=== PATIENT | male | born 1980 | race Caucasian/White ===

== ENCOUNTER 2023-10-05 11:35 | Emergency (ER) | payer OTHER, SELFPAY ==
[2023-10-05 11:38] VITALS: BP 134/81
--- NOTE | 2023-10-05 12:19 | ED.GENMED ---
History of Present Illness
General
Chief Complaint: DVT/Possible Blood Clot
Source: patient
Exam Limitations: none
Time Seen by Provider: 10/05/23 11:58
Nursing documentation reviewed up to this point in time: agreed with
History of Present Illness
History of Present Illness:
Patient is a 42-year-old male who presents to the ER with friend. Patient speaks [place] friend translating. 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
He denies any chest pain shortness of breath. No prior history clot.
Review of Systems
Review of Systems
Allergies reviewed?: Yes
All Other Systems: ROS reviewed and negative except as documented in HPI and ROS
Constitutional: Reports no symptoms
Respiratory: Reports no symptoms; Denies trouble breathing
Cardiac: Reports no symptoms; Denies chest pain or palpitations
Musculoskeletal: Reports other (left leg swelling/discomfort )
Skin: Reports no symptoms
Neurological: Reports no symptoms
Psychiatric: Reports no symptoms
Phy Exam
General Physical Exam
General Presentation: no apparent distress
General age: appears stated age
General Skin: warm and dry
General Habitus: normal
General Mental: alert
General Hydration: appears well hydrated
Cardiovascular Exam
Cardiovascular Exam: regular rate/rhythm, no murmur and normal peripheral pulses
Pulmonary Exam
Pulmonary Exam: lungs clear and no respiratory distress
Neurological Exam
Neurological Exam: alert and oriented x3
Musculoskeletal Exam
Musculoskeletal Exam: other (Left lower extremity is swollen on exam strong pulses full range of motion no erythema)
Skin Exam
Skin Exam: normal color and warm/dry
Psychiatric Exam
Psychiatric Exam: normal mood/affect
Course
Orders/Labs/Results
Orders:
Orders
10/05/23 11:43
US Legs, Left [US Periph Venous LOWER Ext LT] Urgent
Comment:
Reason For Exam: left calf pain
10/05/23 12:37
Complete Blood Count/With Diff Urgent
Comprehensive Metabolic Panel Urgent
10/05/23 13:43
Apixaban [Eliquis] 10 mg PO NOW STA
10/05/23 13:50
Case Management Consult ONCE
Case Management Consult: Discharge Planning
Abnormal Lab Results
10/05/23
12:37
RBC 4.46 L 10^6/uL
(4.70-6.10)
Absolute Monos (auto) 1.0 H 10^3/uL
(0.1-0.6)
Monocytes % 10.0 H %
(1.7-9.3)
10/05/23 12:37
10/05/23 12:37
Vital Signs
Initial and Last Documented VS:
Initial Vital Signs
Temp Pulse Resp BP Pulse Ox
98.3 F 104 20 134/81 99
10/05/23 11:38 10/05/23 11:38 10/05/23 11:38 10/05/23 11:38 10/05/23 11:38
Last Documented Vital Signs
Temp Pulse Resp BP Pulse Ox
98.3 F 94 18 123/86 99
10/05/23 11:38 10/05/23 13:54 10/05/23 13:54 10/05/23 13:54 10/05/23 13:54
Call Or Contact Centre Coach consulted with Physician
Call Or Contact Centre Coach consulted with physician?: Yes
Name of Physician Consulted: Daryl
MDM/Problems Addressed
Differential Diagnosis Includes:
Not limited to leg pain DVT
MDM/Problems Addressed:
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 He has been doing a lot of driving for the past 2 weeks. No prior history of DVT. No shortness of breath. He presents
alert no acute distress left leg is obviously swollen ultrasound does show an acute occlusive DVT throughout the left femoral vein popliteal and infrapopliteal veins it does not extend to the common femoral vein. He does have insurance though he
lives in [place]. Case management was consulted will give a prescription for Eliquis. Patient is going to go back to [place] however I did review with patient importance of his Eliquis following up with family doctor while in [place] and return if any
worsening of symptoms or going to nearest ER if any shortness of breath or concerning symptoms. Will DC on Eliquis 10 mg twice daily for 7 days followed by 5 mg twice daily normal renal function normal CBC. Patient was given a paper prescription
as he is not local. He is unsure which pharmacy he will go to. He was given coupon pack by case management.
*Radiology
Radiology exam reviewed: radiology read reviewed
*Pulse Oximetry
Patient hypoxic: no
*Critical Care Note
Total Time (30-74mins, 75-104mins- exclusive of procedures): Not Applicable
ED Attending Note
-
Portions of this chart may have been created with voice recognition software.� Occasional wrong word or��sound alike� substitutions may have occurred due to the inherent limitations of voice recognition software.
Discharge Plan
Departure
Patient Disposition: Home (Routine Discharge)
Date of Disposition: 10/05/23
Time of Disposition: 13:44
Patient with high blood pressure during this ER visit?: Yes
Condition: Fair
Covid-19: Not Applicable
Discharge Problem:
DVT (deep venous thrombosis)
Instructions: Deep Vein Thrombosis (Blood Clots in the Legs) (DC), BLOOD PRESSURE
Prescriptions:
New
Eliquis DVT-PE Treat 30D Start 5 mg (74 tabs) tablets,dose pack
See Rx Instructions .ROUTE .COMPLEX Qty: 74 0RF
Rx Instructions:
10 mg twice daily for 7 days followed by 5 mg twice daily
Referrals:
UNKNOWN - PT DOES,NOT KNOW [Family Provider] -
Activity Restrictions/Additional Instructions:
As discussed you were given a paper prescription for Eliquis. This is a blood thinner. 10 mg twice daily for 7 days followed by 5 mg twice daily. Follow-up closely with your family doctor in extremities reevaluation return if any worsening of
symptoms including worsening swelling pain or shortness of breath.
Interventions
Interventions:
*Risk Screen - Suicide Last Done: 10/05/23 11:38
*General Assessment Last Done: 10/05/23 11:38
*Neglect/Abuse Screening Last Done: 10/05/23 11:38
*Nursing Disposition Last Done: 10/05/23 13:56
ED- Cardiac Assessment Last Done: 10/05/23 11:44
ED- Pulmonary Assessment Last Done: 10/05/23 11:44
ED-Peripheral Vascular Assessment Last Done: 10/05/23 11:44
Discharge Date and Time
Discharge Date/Time: 10/05/23 13:57
Print Language: EMIRATI
[2023-10-05 12:51] VITALS: BP 137/72
[2023-10-05 13:12] LABS: % Basophils 0.3 % (0-2); % Eosinophils 1.9 % (0-6); % Immature Granulocytes 0.3 % (0-0.5); % Lymphocytes 24.2 % (20.5-51.1); % Neutrophils 63.3 % (42.2-75.2); Absolute Eosinophils 0.2 10^3/uL (0-0.7); Absolute Lymphocytes 2.3 10^3/uL (1.2-3.4); Hematocrit 39.2 % (39.0-52.0); Hemoglobin 13.6 g/dL (13.0-18.0); Mean Corp Hgb Conc. 34.7 g/dL (33.0-37.0); Mean Corpuscular Hgb 30.5 pg (27.0-31.0); Mean Corpuscular Volume 87.9 fL (80.0-94.0); Mean Platelet Volume 10.1 fL (7.4-10.4); Nucleated Red Blood Cells % 0 % (-); Platelet Count 272 10^3/uL (130-400); Red Blood Cell Count 4.46 10^6/uL (4.70-6.10); Red Cell Dist. Width 11.9 % (11.5-14.5); White Blood Cell Count 9.5 10^3/uL (4.8-10.8)
[2023-10-05 13:27] LABS: ALT (SGPT) 15 U/L (0-50); AST (SGOT) 20 U/L (17-59); Albumin 4.1 g/dl (3.5-5.0); Alkaline Phosphatase 67 U/L (38-126); Blood Urea Nitrogen 11 mg/dl (9-20); Calcium 9.2 mg/dl (8.4-10.2); Carbon Dioxide 27 mmol/L (22-30); Chloride 105 mmol/L (98-107); Glucose 96 mg/dl (70-99); Potassium 4.4 mmol/L (3.5-5.1); Sodium 139 mmol/L (135-145); Total Bilirubin 0.7 mg/dl (0.2-1.3); eGFR > 60.00
[2023-10-05] MEDS: ELIQUIS 10 MG PO (13:52)
[2023-10-05 13:54] VITALS: BP 123/86
== END 2023-10-05 13:57 | disposition home or self-care (01) ==
LOC: EMR 11:35
PROVIDERS: Nurse Practitioner; EMERGENCY PHYSICIAN Student in an Organized Health Care Education/Training Program
DX: I82.412 Acute embolism and thrombosis of left femoral vein (principal); I82.432 Acute embolism and thrombosis of left popliteal vein; M79.605 Pain in left leg; R03.0 Elevated blood-pressure reading, without diagnosis of hypertension
CPT/HCPCS: 99284; 80053; 85025; 93971